=== PATIENT | female | born 1970 | race Caucasian/White ===

== ENCOUNTER → 2019-03-01 | Outpatient (CLI) | payer OTHER ==
[2014-05-05 10:47] VITALS: BP 105/70
[~2019-03-01] MED LIST: ALBU2.5V8 INH; ASPI-630 PO; ATOR10TA PO; CHOL500016 PO; FERR325T58 PO; FLUT12AE IH; GADOTERATE 7.5 MMOL/15ML VIAL. IVP ONE; LEVO150T PO; LISI10TA2 PO; OXYC1TAB15 PO; Oxycodone Hcl/Acetaminophen PO; TELM40TA PO
--- NOTE | 2019-03-01 15:01 | KCIC ---
BRAIN WO/W CONTRAST History: Dizziness. Vertigo. Pulsatile tinnitus. Technique: Multiplanar, multi sequential pre and postcontrast MR imaging was performed of the brain. Contrast: 24 mL Dotarem. Comparison: Head CT March 18, 2018. Findings: Partially evaluated T2 hyperintense enhancing lesion within the right parapharyngeal space measures 1.2 x 0.9 cm (series 6 image #3 and series 13 image #3). The lesion demonstrates increased diffusion weighted signal. No acute infarct. No intracranial hemorrhage. No mass effect. No hydrocephalus. Extra-axial spaces are unremarkable. No pathologic enhancement. No pathologic signal abnormality or enhancement within the bilateral cerebellopontine angles or internal auditory canals. Bilateral cochlea and semicircular canals appear symmetric. Imaged orbits are unremarkable. Right inferior maxillary and sphenoid sinus mucosal thickening. Partial right anterior ethmoid sinus opacification. Mastoid air cells are clear. Impression: 1. No acute intracranial abnormality. 2. Right parapharyngeal space enhancing T2 hyperintense mass, may represent deep parotid salivary tumor such as pleomorphic adenoma or a neurogenic tumor such as schwannoma. Recommend CT with contrast to further assess. Electronically signed by: Stephen Matthews DO (03/01/2019 2:58 PM) [facility]-[email or web address]
== END | disposition home or self-care (01) ==
LOC: KCIC MRI 12:42
PROVIDERS: ATTEND Family Medicine
DX: R42 Dizziness and giddiness (principal); J34.89 Other specified disorders of nose and nasal sinuses; J39.2 Other diseases of pharynx; I10 Essential (primary) hypertension; Z90.49 Acquired absence of other specified parts of digestive tract; Z85.850 Personal history of malignant neoplasm of thyroid; J45.909 Unspecified asthma, uncomplicated
CPT/HCPCS: 70553; A9575

== ENCOUNTER → 2019-03-04 | Outpatient (CLI) | payer OTHER ==
[2014-05-05 10:47] VITALS: BP 105/70
[~2019-03-04] MED LIST changes: +CONTRAST GIVEN. MC PRN; -GADOTERATE 7.5 MMOL/15ML VIAL. IVP ONE; +IOHEXOL 300 MG/ML 100ML VIAL. IV ONE
--- NOTE | 2019-03-04 16:19 | KCIC ---
CT SOFT TISSUE NECK W/CONTRAST History: Right paratracheal space mass seen on recent MRI. Technique: CT imaging was performed of the neck soft tissues with contrast. Coronal and sagittal reconstructions were performed. Contrast: 10 mL Omnipaque 300 IV contrast. Exposure: One or more of the following individualized dose reduction techniques were utilized for this examination: 1. Automated exposure control 2. Adjustment of the mA and/or kV according to patient size 3. Use of iterative reconstruction technique. Comparison: Brain MRI March 11, 2019. Findings: 1.1 x 0.8 cm right retropharyngeal lymph node with central hypoattenuation, concerning for necrosis. Additional enlarged right level 2A lymph node measures 1.4 x 1.2 cm. Borderline enlarged rounded left submandibular lymph node. Enlarged left level 3 lymph node measures 1.0 x 1.0 cm with rounded appearance. Numerous additional smaller bilateral deep cervical chain and right intraparotid lymph nodes. Postoperative changes within the modified radical right neck dissection. Right submandibular gland absence of severe atrophy. Additional postoperative changes within the region of the thyroid gland. Evaluation of the oropharynx is degraded by patient motion. Asymmetry of the piriform recesses with soft tissue prominence in the region of the right piriform recess. Unremarkable bilateral parotid glands. Unremarkable left submandibular gland. Calcified right upper lobe pulmonary nodule. Right inferior maxillary sinus mucosal thickening. Right sphenoid sinus mild mucosal thickening. Mastoid air cells are clear. Imaged orbits and intracranial contents are unremarkable. Impression: 1. Pathologically enlarged right retropharyngeal lymph node with possible central necrosis corresponds with MRI finding. Additional bilateral deep cervical chain lymphadenopathy. Recommend correlation for history of malignancy and biopsy if indicated. 2. Asymmetric thickening of the right piriform recess. Recommend comparison with prior imaging studies and further clinical evaluation including direct visualization if indicated. 3. Postoperative changes right neck and in the region of the thyroid gland. Electronically signed by: Stephen Matthews DO (03/04/2019 4:16 PM) [facility]-KCIC[facility]
== END | disposition home or self-care (01) ==
LOC: KCIC CT 12:32
PROVIDERS: ATTEND Family Medicine
DX: R59.0 Localized enlarged lymph nodes (principal); J45.909 Unspecified asthma, uncomplicated; I10 Essential (primary) hypertension; J32.9 Chronic sinusitis, unspecified
CPT/HCPCS: 70491; Q9967

== ENCOUNTER → 2021-05-08 | Outpatient (CLI) | payer OTHER ==
[2014-05-05 10:47] VITALS: BP 105/70
[~2021-05-08] MED LIST changes: +CETI10TA74 PO; -CONTRAST GIVEN. MC PRN; +FLUT1DIS IH; +FLUT9.9S NS; +GADOTERATE 7.5 MMOL/15ML VIAL. IVP ONE; -IOHEXOL 300 MG/ML 100ML VIAL. IV ONE; +LISI10TA16 PO; -LISI10TA2 PO; +METO-239 PO
--- NOTE | 2021-05-08 12:48 | KCIC ---
EXAM: Brain and orbital MRI with and without contrast. HISTORY: Vision disturbances. Left eye flashes. TECHNIQUE: Multiplanar, multisequence magnetic resonance imaging of the brain and orbits was performe d prior to and following the administration of intravenous contrast. COMPARISON: MRI dated 03/01/2019. FINDINGS: There is no restricted diffusion to suggest acute or subacute infarction. There is no susce ptibility effect to suggest hemorrhage. There is no mass effect or midline shift. There is no hydroce phalus. No suspicious white matter lesion is seen. The globes, lenses, extraocular muscles and optic nerves are unremarkable. There is no infiltration o f the retrobulbar fat or orbital mass. There is a tiny right maxillary sinus mucous retention cyst. The mastoid air cells are clear. There a re normal flow voids within the cerebral vessels. There has been slight interval decrease in a T2 hyp erintense lesion within the right parapharyngeal space measuring 11 x 7 mm, compared to prior measure ments of 12 x 8 mm. There are low-lying cerebellar tonsils. This is not within limits for a Chiari malformation. There is no suspicious enhancing lesion. There are enlarged cervical chain lymph nodes, not formally assessed on this exam. The right submandibular gland is absent. IMPRESSION: 1. No acute intracranial finding. 2. No acute orbital finding. 3. Cervical chain lymphadenopathy, not formally assessed on this exam. This was present on a CT perfo rmed 03/04/2019. Given evidence of prior right neck dissection and suspected surgical absence of the ri ght submandibular gland, the possibility of an underlying neoplastic etiology is not excluded. There has been slight interval decrease in a T2 hyperintense lesion within the right parapharyngeal space, also likely an enlarged lymph node. Electronically signed by: Miryam Rothman MD (05/08/2021 12:46 PM) [facility]
== END ==
LOC: KCIC MRI 08:26
PROVIDERS: ATTEND Optometrist
DX: R59.1 Generalized enlarged lymph nodes (principal); H53.19 Other subjective visual disturbances
CPT/HCPCS: 70543; 70553; A9575

== ENCOUNTER 2021-05-26 10:21 | Inpatient (IN) | payer OTHER ==
[2021-05-26] VITALS (9 sets, daily range): BP systolic 107–137; BP diastolic 44–73
[~2021-05-26] VITALS: Ht 165.1 cm; Wt 142.8 kg
[~2021-05-26 10:21] MED LIST changes: -GADOTERATE 7.5 MMOL/15ML VIAL. IVP ONE
[2021-05-26] MEDS ORDERED: BUPIVACAINE-EPI 0.5% 30 ML VIAL KIT. ONE ×2 (11:13→11:14)
[2021-05-26] MEDS ORDERED: SUCCINYLCHOLINE 200 MG/10 ML VIAL. ONE (11:23)
[2021-05-26] MEDS ORDERED: PROPOFOL 10 MG/ML (20ML) VIAL. IV ONE (11:23)
[2021-05-26] MEDS ORDERED: ROCURONIUM 50 MG/5 ML VIAL. ONE (11:23)
[2021-05-26] MEDS ORDERED: LIDOCAINE 2% PF 5 ML VIAL. ONE (11:23)
[2021-05-26] MEDS ORDERED: fentaNYL PF VIAL 100 MCG/2 ML VIAL IVP PRN ×2 (11:30)
[2021-05-26] MEDS ORDERED: HYDROmorphone 2 MG/ML VIAL IVP PRN (11:30)
[2021-05-26] MEDS: IV RINGERS,LACTATED 1000ML 1,000 ML IV SCH ×2 (11:50→13:13)
[2021-05-26] MEDS ORDERED: fentaNYL PF VIAL 250 MCG/5 ML VIAL ONE (12:06)
--- NOTE | 2021-05-26 12:07 | PDOC2 ---
CONSULT Date of Consult Date of Consult DATE: 05/26/21 TIME: 12:04 History of Present Illness Reason for Visit: 50 year old female reported to ER at [facility] with abdominal pain. The pain began last night and has been in the RLQ. The pain remained persistent with no nausea or vomiting. In the ER her evaluation was consistent with acute appendicitis. Past Medical History Cardiovascular: HTN Pulmonary: No pertinent hx GI: No pertinent hx Endocrine: Other Past Surgical History Past Surgical History: , Other Family History Family History: Diabetes, Heart Disease Social History No Current Medications Current Medications Current Medications Fentanyl Citrate (Fentanyl 2ml Vial) 25 mcg PRN Q5MIN PRN IVP MILD PAIN 1-3; Start 05/26/21 at 11:30; Stop 05/27/21 at 11:29 Fentanyl Citrate (Fentanyl 2ml Vial) 50 mcg PRN Q5MIN PRN IVP MODERATE PAIN 4- 6; Start 05/26/21 at 11:30; Stop 05/27/21 at 11:29 Morphine Sulfate (Morphine Sulfate) 1 mg PRN Q10MIN PRN IVP SEVERE PAIN 7-10; Start 05/26/21 at 11:30; Stop 05/27/21 at 11:29 Ringer's Solution 1,000 ml @ 30 mls/hr Q24H IV ; Start 05/26/21 at 11:30; Stop 05/26/21 at 23:29 Hydromorphone HCl (Dilaudid) 0.5 mg PRN Q10MIN PRN IVP SEVERE PAIN 7-10, 2nd CHOICE; Start 05/26/21 at 11:30; Stop 05/27/21 at 11:29 Prochlorperazine Edisylate (Compazine) 5 mg PACU PRN PRN IVP NAUSEA, MRX1; Start 05/26/21 at 11:30; Stop 05/27/21 at 11:29 Active Scripts Active Reported Zyrtec (Cetirizine Hcl) 10 Mg Tablet 10 Mg PO Flonase Allergy Relief (Fluticasone Propionate) 9.9 Ml [place].susp 2 Sprays NS DAILY Advair 100-50 Diskus (Fluticasone/Salmeterol) 1 Each Disk.w.dev 1 Inh IH BID Metoprolol Succinate ( Xl ) (Metoprolol Succinate) 25 Mg Tab.er.24h 25 Mg PO DAILY Micardis (Telmisartan) 40 Mg Tablet 1 Tab PO DAILY Proair Hfa Inhaler (Albuterol Sulfate) 8.5 Gm Hfa.aer.ad 1 Puff INH PRN Q6HRS PRN Flovent 110MCG Hfa (Fluticasone Propionate) 12 Gm Aer.w.adap 2 Puff IH BID Percocet 5-325 Mg Tablet (Oxycodone/Acetaminophen) 1 Each Tablet 1-2 Tab PO Q4-6HRS last dose at 1100 may take the next pill at 3 pm Iron Supplement (Ferrous Sulfate) 325 Mg Tablet 65 Mg PO DAILY last dose this am Vitamin D3 (Cholecalciferol (Vitamin D3)) 5,000 Unit Tablet 3,000 Unit PO DAILY last dose this am next dose tomorrow Aspirin 81 Mg Tab.chew 81 Mg PO DAILY last dose this am net dose tomorrow Lipitor (Atorvastatin Calcium) 10 Mg Tablet 10 Mg PO DAILY last dose last night next dose tonight Synthroid (Levothyroxine Sodium) 150 Mcg Tablet 150 Mcg PO DAILYAC last dose this am next dose tomorrow Lisinopril 10 Mg Tablet 10 Mg PO DAILY next dose tomorrow take blood pressure if geater than 120/ 60 resume Allergies Allergies: Coded Allergies: lisinopril (Verified Allergy, Unknown, 05/08/21) ROS General: No: Chills, Night Sweats, Fatigue, Malaise, Appetite, Other PSYCHOLOGICAL ROS: No: Anxiety, Behavioral Disorder, Concentration difficultie, Decreased libido, Depression, Disorientation, Hallucinations, Hostility, Irritablity, Memory difficulties, Mood Swings, Obsessive thoughts, Physical abuse, Sexual abuse, Sleep disturbances, Suicidal ideation, Other HEENT: No: Heacaches, Visual Changes, Hearing change, Nasal congestion, Nasal discharge, Oral lesions, Sinus pain, Sore Throat, Epistaxis, Sneezing, Snoring, Tinnitus, Vertigo, Vocal changes, Other ALLERGY AND IMMUNOLOGY: No: Hives, Insect Bite Sensitivity, Itchy/Watery Eyes, Nasal Congestion, Post Nasal Drip, Seasonal Allergies, Other ENDOCRINE: No: Breast Changes, Galactorrhea, Hair Pattern Changes, Hot Flashes, Malaise/lethargy, Mood Swings, Palpitations, Polydipsia/polyuria, Skin Changes, Temperature Intolerance, Unexpected Weight Changes, Other Respiratory: No: Cough, Hemoptysis, Orthopnea, Pleuritic Pain, Shortness of breath, SOB with excertion, Sputum Changes, Stridor, Tachypnea, Wheezing, Other Gastrointestinal: Yes Abdominal Pain Genitourinary: No Dysuria, No Frequency, No Incontinence, No Hematuria, No Retention, No Discharge, No Urgency, No Pain, No Flank Pain, No Other, No , No , No , No , No , No , No Musculoskeletal: No Gait Disturbance, No Joint Pain, No Joint Stiffness, No Joint Swelling, No Muscle Pain, No Muscular Weakness, No Pain In:, No Swelling In:, No Other Neurological: No Behavorial Changes, No Bowel/Bladder ControlChng, No Confusion, No Dizziness, No Gait Disturbance, No Headaches, No Impaired Coord/balance, No Memory Loss, No Numbness/Tingling, No Seizures, No Speech Problems, No Tremors, No Visual Changes, No Weakness, No Other Skin: No Dry Skin, No Eczema, No Hair Changes, No Lumps, No Mole Changes, No Mottling, No Nail Changes, No Pruritus, No Rash, No Skin Lesion Changes, No Other, No Acne Physical Exam General: Alert, Oriented X3, Cooperative HEENT: Atraumatic Lungs: Clear to auscultation Heart: Regular rate Abdomen: Soft (morbidly obese, tender in RLQ) Extremities: No clubbing, No cyanosis Skin: No rashes, No breakdown Neuro: Normal speech Assessment/Plan Assessment/Plan 50 year old female with R abdominal pain, CT suggestive of appendicitis. Plan to OR for laparoscopy WISAM PEÑALOZA MD May 26, 2021 12:07
[2021-05-26] MEDS ORDERED: DEXAMETHASONE SOD PHOS 4 MG/ML VIAL ONE (12:11)
[2021-05-26] MEDS ORDERED: ONDANSETRON PF 4 MG/2 ML VIAL. ONE (12:11)
[2021-05-26] MEDS ORDERED: FAMOTIDINE 20 MG/2 ML VIAL ONE (12:11)
--- NOTE | 2021-05-26 12:12 | PDOC1 ---
History and Physical Date of Admission Date of Admission DATE: 05/26/21 TIME: 12:11 Identification/Chief Complaint Chief Complaint Abdominal pain Source Source: Chart review, Patient History of Present Illness History of Present Illness Patient is a 50-year-old female who presents as a transfer from [facility] ER due to acute appendicitis. She reports right lower quadrant abdominal pain that began last night around 6 PM. She describes pain as sharp, constant, without radiation. Pain is worsened this morning, which caused her to come to the ED for further evaluation. Labs at [facility] ER showed WBC 12.6, hemoglobin 11.4, hematocrit 36.4. CT abdomen/pelvis showed acute appendicitis. General surgery was contacted and made aware of patient. She was transferred to [facility] for urgent surgical intervention. I have accepted patient for further medical management. Past Medical History Past Medical History Asthma, GERD, HTN, thyroid cancer, hypothyroidism Cardiovascular: HTN Pulmonary: No pertinent hx GI: No pertinent hx Endocrine: Other Past Surgical History Past Surgical History Thyroid surgery, cholecystectomy, Past Surgical History: , Other Family History Family History: Diabetes, Heart Disease Social History Smoke: No ALCOHOL: none Drugs: None Current Medications Current Medications Current Medications Fentanyl Citrate (Fentanyl 2ml Vial) 25 mcg PRN Q5MIN PRN IVP MILD PAIN 1-3; Start 05/26/21 at 11:30; Stop 05/27/21 at 11:29 Fentanyl Citrate (Fentanyl 2ml Vial) 50 mcg PRN Q5MIN PRN IVP MODERATE PAIN 4- 6; Start 05/26/21 at 11:30; Stop 05/27/21 at 11:29 Morphine Sulfate (Morphine Sulfate) 1 mg PRN Q10MIN PRN IVP SEVERE PAIN 7-10; Start 05/26/21 at 11:30; Stop 05/27/21 at 11:29 Ringer's Solution 1,000 ml @ 30 mls/hr Q24H IV ; Start 05/26/21 at 11:30; Stop 05/26/21 at 23:29 Hydromorphone HCl (Dilaudid) 0.5 mg PRN Q10MIN PRN IVP SEVERE PAIN 7-10, 2nd CHOICE; Start 05/26/21 at 11:30; Stop 05/27/21 at 11:29 Prochlorperazine Edisylate (Compazine) 5 mg PACU PRN PRN IVP NAUSEA, MRX1; Sta rt 05/26/21 at 11:30; Stop 05/27/21 at 11:29 Active Scripts Active Reported Zyrtec (Cetirizine Hcl) 10 Mg Tablet 10 Mg PO Flonase Allergy Relief (Fluticasone Propionate) 9.9 Ml [place].susp 2 Sprays NS DAILY Advair 100-50 Diskus (Fluticasone/Salmeterol) 1 Each Disk.w.dev 1 Inh IH BID Metoprolol Succinate ( Xl ) (Metoprolol Succinate) 25 Mg Tab.er.24h 25 Mg PO DAILY Micardis (Telmisartan) 40 Mg Tablet 1 Tab PO DAILY Proair Hfa Inhaler (Albuterol Sulfate) 8.5 Gm Hfa.aer.ad 1 Puff INH PRN Q6HRS PRN Flovent 110MCG Hfa (Fluticasone Propionate) 12 Gm Aer.w.adap 2 Puff IH BID Percocet 5-325 Mg Tablet (Oxycodone/Acetaminophen) 1 Each Tablet 1-2 Tab PO Q4-6HRS last dose at 1100 may take the next pill at 3 pm Iron Supplement (Ferrous Sulfate) 325 Mg Tablet 65 Mg PO DAILY last dose this am Vitamin D3 (Cholecalciferol (Vitamin D3)) 5,000 Unit Tablet 3,000 Unit PO DAILY last dose this am next dose tomorrow Aspirin 81 Mg Tab.chew 81 Mg PO DAILY last dose this am net dose tomorrow Lipitor (Atorvastatin Calcium) 10 Mg Tablet 10 Mg PO DAILY last dose last night next dose tonight Synthroid (Levothyroxine Sodium) 150 Mcg Tablet 150 Mcg PO DAILYAC last dose this am next dose tomorrow Lisinopril 10 Mg Tablet 10 Mg PO DAILY next dose tomorrow take blood pressure if geater than 120/ 60 resume Allergies Allergies: Coded Allergies: lisinopril (Verified Allergy, Unknown, 05/08/21) ROS Review of System GENERAL: No history of weight change, weakness or fevers. SKIN: No bruising, hair changes or rashes. EYES: No blurred, double or loss of vision. NOSE AND THROAT: No history of nosebleeds, hoarseness or sore throat. HEART: Denies chest pain, denies palpitations. LUNGS: Denies cough, hemoptysis, wheezing or shortness of breath. GASTROINTESTINAL: Abdominal pain. Denies nausea, vomiting. GENITOURINARY: Denies dysuria, frequency, urgency, hematuria. NEUROLOGIC: Denies history of numbness, tingling, tremor or weakness. PSYCHIATRIC: Denies anxiety, denies depression. ENDOCRINE: No history of heat or cold intolerance, polyuria or polydipsia. EXTREMITIES: Denies muscle weakness, joint pain, pain on walking or stiffness. Physical Exam Physical Exam General: Alert, Oriented X3, Cooperative. Moderate distress. HEENT: PERRLA, EOMI Lungs: Clear to auscultation, Normal air movement Heart: RRR, no murmurs Cardiovascular: S1, S2 Abdomen: Right lower quadrant, tenderness. Normal bowel sounds, Soft, Extremities: No clubbing, No cyanosis Skin: No rashes, No significant lesion Neuro: Normal speech, Normal tone, Sensation intact Psych/Mental Status: Mental status NL, [place] [address] IMAGING REPORT Signed PATIENT: BABITA GAMBOA ACCOUNT: [id number] : 1970 LOCATION: ER AGE: 50 SEX: F EXAM STATUS: REG ER ORD. PHYSICIAN: KULDEEP CHEEK DO REASON: RLQ pain PROCEDURE: CT ABD PELV W/ IV CONTRST ONLY EXAM: CT ABDOMEN/PELVIS WITH CONTRAST. HISTORY: Right lower quadrant pain. TECHNIQUE: Computed tomography of the abdomen and pelvis was performed after the intravenous administration of iodinated contrast. One or more of the following individualized dose reduction techniques were utilized for this examination: 1. Automated exposure control. 2. Adjustment of the mA and/or kV according to patient size. 3. Use of iterative reconstruction technique. COMPARISON: 04/27/2020. FINDINGS: There are limitations from [id number] ratio given technical factors. The most superior aspect of the hemidiaphragms are not included in this [id number]. Lung windows through the visualized portions of the bases reveal a calcified granuloma in the left lower lobe. Bone windows reveal no suspicious lesions. The appendix is thickened with surrounding inflammatory change, consistent with acute appendicitis. There is no drainable collection. There is no small bowel obstruction. The uterus and ovaries are unremarkable by CT. The gallbladder is surgically absent. The superior aspect of the hepatic dome was excluded, but no abnormalities appreciated. The spleen is mildly enlarged at 15.1 cm. The pancreas, adrenal glands and kidneys are unremarkable. There are no pathologically enlarged lymph nodes. IMPRESSION: 1. Acute appendicitis. 2. Mild splenomegaly. VTE Prophylaxis Ordered VTE Prophylaxis Devices: No VTE Pharmacological Prophylaxi: Yes Assessment/Plan Assessment/Plan Acute appendicitis HTN Hypothyroidism GERD Plan: Patient was taken urgently to the OR Consulted general surgery I imagine she will be inpatient for the next day or so Resume home medications FEN - Cardiac diet PPX - Heparin FULL CODE Dispo - inpatient for above Justifications for Admission Other Justification JAGRUTI LAWSON MD May 26, 2021 12:12
[2021-05-26] MEDS ORDERED: PHENYLEPHRINE in 0.9% NACL PF 1 MG/10 ML SYRINGE. IV ONE (12:13)
[2021-05-26] MEDS ORDERED: BUPIVACAINE-EPI 0.5% 30 ML VIAL KIT. INJ ONE (12:26)
[2021-05-26] MEDS ORDERED: ACETAMINOPHEN 325 MG TABLET. PO PRN (12:30)
[2021-05-26] MEDS ORDERED: hydrALAZINE 20 MG/ML VIAL. IVP PRN (12:30)
[2021-05-26] MEDS ORDERED: MAGNESIUM HYDROXIDE 2,400 MG/30 ML ORAL.SUSP. PO PRN (12:30)
[2021-05-26] MEDS ORDERED: CALCIUM CARBONATE 500 MG TAB.CHEW PO PRN (12:30)
[2021-05-26] MEDS ORDERED: oxyCODONE/APAP 5/325 1 TAB TABLET PO PRN ×3 (12:30→13:30)
[2021-05-26] MEDS ORDERED: HYDROcodone/APAP 5/325MG 1 TAB TABLET PO PRN (12:30)
[2021-05-26] MEDS ORDERED: ZOLPIDEM 5 MG TABLET. PO PRN (12:30)
[2021-05-26] MEDS ORDERED: MAG HYDROX/ALUMINUM HYD/SIMETH 30 ML ORAL.SUSP PO PRN (12:30)
[2021-05-26] MEDS ORDERED: ONDANSETRON PF 4 MG/2 ML VIAL. IVP PRN (12:30)
[2021-05-26] MEDS ORDERED: MORPHINE SULFATE 2 MG/ML INJ. IV PRN (12:30)
[2021-05-26] MEDS ORDERED: NEOSTIGMINE METHYLSULFATE 5 MG/5 ML SYRINGE. ONE (12:32)
[2021-05-26] MEDS ORDERED: MORPHINE SULFATE 2 MG/ML INJ. ONE (13:12)
[2021-05-26] MEDS ORDERED: PROCHLORPERAZINE 10 MG/2 ML VIAL. ONE (13:12)
[2021-05-26] MEDS: PROCHLORPERAZINE 10 MG/2 ML VIAL. IVP PRN ×2 (13:15→13:38)
[2021-05-26] MEDS: MORPHINE SULFATE 2 MG/ML INJ. IVP PRN ×2 (13:16→13:26)
--- NOTE | 2021-05-26 13:18 | PDOC4 ---
Operative Note Operative Note Preoperative Diagnosis: Acute Appendicitis Postoperative Diagnosis: Same Procedure: Laparoscopic appendectomy Surgeon: Luigi Anesthesia: Gen. EBL: 10 mL Specimen: Appendix to pathology Drains: None Complications: None Indication: The patient is a 50-year-old female who reported to the emergency department with abdominal pain. The evaluation is consistent with acute appendicitis. The patient was offered surgical treatment with a laparoscopic appendectomy. The risks of surgery were discussed which include bleeding, infection, visceral injury, pain, anesthetic risk, potential need for additional surgery or procedure. The patient understands and would like to proceed. Description: The patient was taken to the operating room and placed supine on the operating table. Gen. anesthesia was performed. The abdomen was prepped with ChloraPrep and draped in a standard surgical manner. A left abdominal incision was made through which a visualized 5 mm trocar was inserted. A pneumoperitoneum was created and the laparoscope was introduced. In the left lower quadrant a 5 mm trocar was inserted. In the suprapubic region a 12 mm trocar was inserted. The appendix was identified and appeared inflamed consistent with acute appendicitis. There was no clear evidence of perforation or periappendiceal abscess. The mesoappendix was bluntly from the appendix. The mesoappendix was controlled using several clips and it was divided. The appendix was then amputated off the cecum using an Endo FRANCISCO 45 stapling device. The appendix was then placed in an endoscopic bag and extracted at the suprapubic incision site. The fascia there was closed with 0 Vicryl and infiltrated with half percent Marcaine with epinephrine. The RLQ was visualized and the staple line appeared well intact and hemostasis was good. No other abnormalities were identified grossly. The remaining ports were removed and the pneumoperitoneum was relieved. The skin at all incision sites was closed with 4- 0 Monocryl. Steri-Strips and dressings were applied. The patient tolerated the procedure well and was sent to the recovery room in stable condition. At the end of the case all counts were correct. WISAM PEÑALOZA MD May 26, 2021 13:18
[2021-05-26] MEDS ORDERED: KETOROLAC 30 MG/ML VIAL. ONE (13:48)
--- NOTE | 2021-05-26 13:50 | NUR ---
Received report from Abbey Osman in PACU, patient received 50 mcg of fentanyl, 2mg of morphine, 4 decadron, 4 zofran, 20 pepcid, compazine twice. Patient denies pain in shoulder, complained of not able to take a deep breathe. 3 islets, 3 incisions with steri strips and glue. 1300input, 25ml in galeano, EBL 10. BP 156/74 oxygen sats 92-96 RA.
[2021-05-26] MEDS ORDERED: KETOROLAC 30 MG/ML VIAL. IVP ONE (14:00)
[2021-05-26] MEDS: BUDESONIDE 0.5 MG/2 ML NEBU. NEB SCH (20:00)
[2021-05-26] MEDS ORDERED: NON FORMULARY ITEM (Fluticasone Propionate (Flovent 110MCG Hfa) 2 PUFF) IH SCH (21:00)
[2021-05-26] MEDS: HEPARIN for SUB-Q USE 5,000 UNIT/ML VIAL. SQ SCH (22:16)
[2021-05-27 03:00] VITALS: BP 105/52
[2021-05-27] MEDS: HEPARIN for SUB-Q USE 5,000 UNIT/ML VIAL. SQ SCH ×2 (06:36→14:00)
[2021-05-27 07:00] VITALS: BP 102/47
[2021-05-27] MEDS ORDERED: LEVOTHYROXINE 150 MCG TABLET PO SCH (07:30)
[2021-05-27 07:57] LABS: BASO % 0 % (0-3); EOS % 0 % (0-3); HEMATOCRIT 32.3 % (36.0-47.0); HEMOGLOBIN 10.2 g/dL (12.0-15.5); LYMPH # 0.7 x10^3/uL (1.0-4.8); LYMPH % 8 % (24-48); MEAN CORPUSCULAR HEMOGLOBIN 25 pg (25-35); MEAN CORPUSCULAR HGB CONC 32 g/dL (31-37); MEAN CORPUSCULAR VOLUME 80 fL (79-100); MONO # 0.6 x10^3/uL (0.0-1.1); MONO % 6 % (0-9); NEUT # 7.7 x10^3/uL (1.8-7.7); NEUT % 86 % (31-73); PLATELET COUNT 162 x10^3/uL (140-400); RED BLOOD COUNT 4.07 x10^6/uL (3.50-5.40); RED CELL DISTRIBUTION WIDTH 15.7 % (11.5-14.5)
[2021-05-27] MEDS ORDERED: FERROUS SULFATE 325 MG TABLET. PO SCH (08:00)
[2021-05-27] MEDS: BUDESONIDE 0.5 MG/2 ML NEBU. NEB SCH (08:00)
[2021-05-27 08:28] LABS: CALCIUM 8.1 mg/dL (8.5-10.1); CREATININE 0.5 mg/dL (0.6-1.0); GFR 131.1; POTASSIUM 3.8 mmol/L (3.5-5.1)
[2021-05-27] MEDS ORDERED: CETIRIZINE HCL 10 MG TABLET. PO SCH (09:00)
[2021-05-27] MEDS ORDERED: METOPROLOL SUCC 24HR ER 25 MG TAB.ER.24H. PO SCH (09:00)
[2021-05-27] MEDS ORDERED: LOSARTAN POTASSIUM 50 MG TABLET. PO SCH (09:00)
[2021-05-27] MEDS ORDERED: FLUTICASONE 50MCG/NASAL SPRAY 16GM BOTTLE. NS SCH (09:00)
[2021-05-27] MEDS ORDERED: ATORVASTATIN CALCIUM 10 MG TABLET. PO SCH (09:00)
[2021-05-27] MEDS ORDERED: ASPIRIN CHEWABLE 81 MG TABLET. PO SCH (09:00)
--- NOTE | 2021-05-27 09:01 | PDOC ---
[employer] PROGRESS NOTE Date of Service DOS: DATE: 05/27/21 TIME: 08:54 Chief Complaint Chief Complaint Acute appendicitis - s/p lap appy 05/26/2021 HTN - metoprolol and telmisartan outpatient, sees Dr. Castro Hypothyroidism GERD Plan: Consulted general surgery Resume home medications FEN - Cardiac diet PPX - Heparin FULL CODE Dispo - Home today if ok with Dr. Meyers. Patient prefers tramadol for pain History of Present Illness History of Present Illness Ms Aguillon is a 50-year-old female who presents as a transfer from [facility] ER due to acute appendicitis. She reports right lower quadrant abdominal pain that began last night around 6 PM. She describes pain as sharp, constant, without radiation. Pain is worsened this morning, which caused her to come to the ED for further evaluation. Labs at [facility] ER showed WBC 12.6, hemoglobin 11.4, hematocrit 36.4. CT abdomen/pelvis showed acute appendicitis. General surgery was contacted and made aware of patient. She was transferred to [facility] for urgent surgical intervention. I have accepted patient for further medical management. s/p uncomplicated lap appendectomy on 05/26 with general surgery. WBC 9, Hb 10.2, platelets 162, metabolic panel within normal limits. Afebrile, minimal abdominal pain. No shortness of breath or chest pain. Tolerating p.o. well passing flatus. Vitals/I&O Vitals/I&O: Vital Signs Date Time Temp Pulse Resp B/P (MAP) Pulse Ox O2 Delivery O2 Flow Rate FiO2 05/27/21 08:17 76 102/47 05/27/21 07:00 98.3 16 97 98.3 05/27/21 03:00 Room Air 05/26/21 13:26 10.0 I & O 05/26/21 05/26/21 05/27/21 15:00 23:00 07:00 Intake Total 1300 ml 1232 ml Output Total 185 ml 550 ml 700 ml Balance 1115 ml 682 ml -700 ml Physical Exam General: Alert, Oriented X3, Cooperative Heart: Regular rate Abdomen: Soft (morbidly obese, tender in RLQ) Extremities: No clubbing, No cyanosis Skin: No rashes, No breakdown Labs Labs: Laboratory Tests Test 05/27/21 07:25 White Blood Count 9.0 x10^3/uL (4.0-11.0) Red Blood Count 4.07 x10^6/uL (3.50-5.40) Hemoglobin 10.2 g/dL (12.0-15.5) Hematocrit 32.3 % (36.0-47.0) Mean Corpuscular Volume 80 fL (79-100) Mean Corpuscular Hemoglobin 25 pg (25-35) Mean Corpuscular Hemoglobin Concent 32 g/dL (31-37) Red Cell Distribution Width 15.7 % (11.5-14.5) Platelet Count 162 x10^3/uL (140-400) Neutrophils (%) (Auto) 86 % (31-73) Lymphocytes (%) (Auto) 8 % (24-48) Monocytes (%) (Auto) 6 % (0-9) Eosinophils (%) (Auto) 0 % (0-3) Basophils (%) (Auto) 0 % (0-3) Neutrophils # (Auto) 7.7 x10^3/uL (1.8-7.7) Lymphocytes # (Auto) 0.7 x10^3/uL (1.0-4.8) Monocytes # (Auto) 0.6 x10^3/uL (0.0-1.1) Eosinophils # (Auto) 0.0 x10^3/uL (0.0-0.7) Basophils # (Auto) 0.0 x10^3/uL (0.0-0.2) Sodium Level 139 mmol/L (136-145) Potassium Level 3.8 mmol/L (3.5-5.1) Chloride Level 105 mmol/L (98-107) Carbon Dioxide Level 26 mmol/L (21-32) Anion Gap 8 (6-14) Blood Urea Nitrogen 8 mg/dL (7-20) Creatinine 0.5 mg/dL (0.6-1.0) Estimated GFR (Cockcroft-Gault) 131.1 Glucose Level 88 mg/dL (70-99) Calcium Level 8.1 mg/dL (8.5-10.1) Comment Review of Relevant I have reviewed the following items lucy (where applicable) has been applied. Medications: Current Medications Medications (Trade) Dose Ordered Sig/Bryce Route PRN Reason Start Time Stop Time Status Last Admin Dose Admin Morphine Sulfate (Morphine Sulfate) 1 mg PRN Q10MIN PRN IVP SEVERE PAIN 7-10 05/26/21 11:30 05/26/21 15:14 DC 05/26/21 13:26 Ringer's Solution 1,000 ml @ 30 mls/hr Q24H IV 05/26/21 11:30 05/26/21 23:29 DC 05/26/21 13:13 Prochlorperazine Edisylate (Compazine) 5 mg PACU PRN PRN IVP NAUSEA, MRX1 05/26/21 11:30 05/26/21 15:14 DC 05/26/21 13:38 Heparin Sodium (Porcine) (Heparin Sodium) 5,000 unit Q8HRS SQ 05/26/21 22:00 05/27/21 06:36 Bupivacaine HCl/ Epinephrine Bitart (Sensorcain-Epi 0.5% Kit) 30 ml STK-MED ONCE INJ 05/26/21 12:26 05/26/21 12:44 DC 05/26/21 12:26 Oxycodone/ Acetaminophen (Percocet 5/325) 2 tab PRN Q4HRS PRN PO SEVERE PAIN 05/26/21 13:30 05/26/21 16:19 Ketorolac Tromethamine (Toradol 30mg Vial) 30 mg 1X ONCE IVP 05/26/21 14:00 05/26/21 14:01 DC 05/26/21 13:50 Cetirizine HCl (ZyrTEC) 10 mg DAILY PO 05/27/21 09:00 05/27/21 08:16 Levothyroxine Sodium (Synthroid) 150 mcg DAILYAC PO 05/27/21 07:30 05/27/21 06:33 Metoprolol Succinate (Toprol Xl) 25 mg DAILY PO 05/27/21 09:00 05/27/21 08:17 Justifications for Admission General Conditions Other justification for admit: Acute appendicitis Other Justification KATHRYN OSMAN MD May 27, 2021 09:01
[2021-05-27] MEDS ORDERED: TRAM50TA PO (09:35)
--- NOTE | 2021-05-27 09:38 | PDOC3 ---
Discharge Summary Visit Information Date of Admission: May 26, 2021 Date of Discharge: May 27, 2021 Admitting Diagnosis: Acute appendicitis Final Diagnosis Acute appendicitis Brief Hospital Course Allergies Allergies Coded Allergies Type Severity Reaction Last Updated Verified lisinopril Allergy Intermediate 05/26/21 Yes Vital Signs Vital Signs Date Time Temp Pulse Resp B/P (MAP) Pulse Ox O2 Delivery O2 Flow Rate FiO2 05/27/21 08:17 76 102/47 05/27/21 07:00 98.3 16 97 98.3 05/27/21 03:00 Room Air 05/26/21 13:26 10.0 Lab Results Laboratory Tests Test 05/27/21 07:25 White Blood Count 9.0 x10^3/uL (4.0-11.0) Red Blood Count 4.07 x10^6/uL (3.50-5.40) Hemoglobin 10.2 g/dL (12.0-15.5) Hematocrit 32.3 % (36.0-47.0) Mean Corpuscular Volume 80 fL (79-100) Mean Corpuscular Hemoglobin 25 pg (25-35) Mean Corpuscular Hemoglobin Concent 32 g/dL (31-37) Red Cell Distribution Width 15.7 % (11.5-14.5) Platelet Count 162 x10^3/uL (140-400) Neutrophils (%) (Auto) 86 % (31-73) Lymphocytes (%) (Auto) 8 % (24-48) Monocytes (%) (Auto) 6 % (0-9) Eosinophils (%) (Auto) 0 % (0-3) Basophils (%) (Auto) 0 % (0-3) Neutrophils # (Auto) 7.7 x10^3/uL (1.8-7.7) Lymphocytes # (Auto) 0.7 x10^3/uL (1.0-4.8) Monocytes # (Auto) 0.6 x10^3/uL (0.0-1.1) Eosinophils # (Auto) 0.0 x10^3/uL (0.0-0.7) Basophils # (Auto) 0.0 x10^3/uL (0.0-0.2) Sodium Level 139 mmol/L (136-145) Potassium Level 3.8 mmol/L (3.5-5.1) Chloride Level 105 mmol/L (98-107) Carbon Dioxide Level 26 mmol/L (21-32) Anion Gap 8 (6-14) Blood Urea Nitrogen 8 mg/dL (7-20) Creatinine 0.5 mg/dL (0.6-1.0) Estimated GFR (Cockcroft-Gault) 131.1 Glucose Level 88 mg/dL (70-99) Calcium Level 8.1 mg/dL (8.5-10.1) Laboratory Tests Test 05/27/21 07:25 White Blood Count 9.0 x10^3/uL (4.0-11.0) Red Blood Count 4.07 x10^6/uL (3.50-5.40) Hemoglobin 10.2 g/dL (12.0-15.5) Hematocrit 32.3 % (36.0-47.0) Mean Corpuscular Volume 80 fL (79-100) Mean Corpuscular Hemoglobin 25 pg (25-35) Mean Corpuscular Hemoglobin Concent 32 g/dL (31-37) Red Cell Distribution Width 15.7 % (11.5-14.5) Platelet Count 162 x10^3/uL (140-400) Neutrophils (%) (Auto) 86 % (31-73) Lymphocytes (%) (Auto) 8 % (24-48) Monocytes (%) (Auto) 6 % (0-9) Eosinophils (%) (Auto) 0 % (0-3) Basophils (%) (Auto) 0 % (0-3) Neutrophils # (Auto) 7.7 x10^3/uL (1.8-7.7) Lymphocytes # (Auto) 0.7 x10^3/uL (1.0-4.8) Monocytes # (Auto) 0.6 x10^3/uL (0.0-1.1) Eosinophils # (Auto) 0.0 x10^3/uL (0.0-0.7) Basophils # (Auto) 0.0 x10^3/uL (0.0-0.2) Sodium Level 139 mmol/L (136-145) Potassium Level 3.8 mmol/L (3.5-5.1) Chloride Level 105 mmol/L (98-107) Carbon Dioxide Level 26 mmol/L (21-32) Anion Gap 8 (6-14) Blood Urea Nitrogen 8 mg/dL (7-20) Creatinine 0.5 mg/dL (0.6-1.0) Estimated GFR (Cockcroft-Gault) 131.1 Glucose Level 88 mg/dL (70-99) Calcium Level 8.1 mg/dL (8.5-10.1) Brief Hospital Course Ms Aguillon is a 50-year-old female who presents as a transfer from [facility] ER due to acute appendicitis. She reports right lower quadrant abdominal pain that began last night around 6 PM. She describes pain as sharp, constant, without radiation. Pain is worsened this morning, which caused her to come to the ED for further evaluation. Labs at [facility] ER showed WBC 12.6, hemoglobin 11.4, hematocrit 36.4. CT abdomen/pelvis showed acute appendicitis. General surgery was contacted and made aware of patient. She was transferred to [facility] for urgent surgical intervention. I have accepted patient for further medical management. s/p uncomplicated lap appendectomy on 05/26 with general surgery. WBC 9, Hb 10.2, platelets 162, metabolic panel within normal limits. Afebrile, minimal abdominal pain. No shortness of breath or chest pain. Tolerating p.o. well passing flatus. Problem list: Acute appendicitis - s/p lap appy 05/26/2021 HTN - metoprolol and telmisartan outpatient, sees Dr. Castro Hypothyroidism GERD Allergic rhinitis - cont meds Asthma - moderate persistent, may need to consider singulair outpatient Greater than 30 minutes spent on d/c home with self care. F/u with surgery in 1- 2 weeks Discharge Information Condition at Discharge: Improved Follow Up: Weeks (1) Disposition/Orders: D/C to Home Scheduled Aspirin (Aspirin) 81 Mg Tab.chew, 81 MG PO DAILY for blood thinner, (Reported) last dose this am net dose tomorrow Entered as Reported by: CARLOZ PASTRANA on 05/03/141424 Last Action: Continued on 05/26/211437 by JAGRUTI LAWSON MD Atorvastatin Calcium (Lipitor) 10 Mg Tablet, 10 MG PO DAILY for FOR CHOLESTEROL, #30 Ref 0 (Reported) last dose last night next dose tonight Entered as Reported by: CARLOZ PASTRANA on 05/03/141424 Last Action: Continued on 05/26/211437 by JAGRUTI LAWSON MD Cholecalciferol (Vitamin D3) (Vitamin D3) 5,000 Unit Tablet, 3,000 UNIT PO DAILY, (Reported) last dose this am next dose tomorrow Entered as Reported by: CARLOZ PASTRANA on 05/03/141424 Last Action: Reviewed on 05/26/211427 by NIKOLAI NIX RN Ferrous Sulfate (Iron Supplement) 325 Mg Tablet, 65 MG PO DAILY for anemia, (Reported) last dose this am Entered as Reported by: CARLOZ PASTRANA on 05/03/141424 Last Action: Continued on 05/26/211437 by JAGRUTI LAWSON MD Fluticasone Propionate (Flovent 110MCG Hfa) 12 Gm Aer.w.adap, 2 PUFF IH BID, #1 Ref 2 (Reported) Entered as Reported by: GENESIS KU on 03/01/19 1318 Last Action: Converted on 05/26/211437 by JAGRUTI LAWSON MD Fluticasone Propionate (Flonase Allergy Relief) 9.9 Ml [place].susp, 2 SPRAYS NS DAILY, (Reported) Entered as Reported by: Mera Ayala on 04/24/21 0950 Last Action: Converted on 05/26/211437 by JAGRUTI LAWSON MD Fluticasone/Salmeterol (Advair 100-50 Diskus) 1 Each Disk.w.dev, 1 INH IH BID, (Reported) Entered as Reported by: Mera Ayala on 04/24/21 0950 Levothyroxine Sodium (Synthroid) 150 Mcg Tablet, 150 MCG PO DAILYAC for THYROID SUPPLEMENT, #30 Ref 0 (Reported) last dose this am next dose tomorrow Entered as Reported by: CARLOZ PASTRANA on 05/03/141424 Last Action: Continued on 05/26/211437 by JAGRUTI LAWSON MD Metoprolol Succinate (Metoprolol Succinate ( Xl )) 25 Mg Tab.er.24h, 25 MG PO DAILY for FOR HYPERTENSION, #30 Ref 0 (Reported) Entered as Reported by: Mera Ayala on 04/24/21 0950 Last Action: Continued on 05/26/211437 by JAGRUTI LAWSON MD Telmisartan (Micardis) 40 Mg Tablet, 1 TAB PO DAILY, #30 Ref 5 (Reported) Entered as Reported by: GENESIS KU on 03/01/191317 Last Action: Converted on 05/26/211437 by JAGRUTI LAWSON MD Scheduled PRN Albuterol Sulfate (Proair Hfa Inhaler) 8.5 Gm Hfa.aer.ad, 1 PUFF INH PRN Q6HRS PRN for SHORTNESS OF BREATH, Ref 0 (Reported) Entered as Reported by: GENESIS KU on 03/01/191317 Last Action: Reviewed on 05/26/211427 by NIKOLAI NIX RN Tramadol Hcl (Tramadol Hcl) 50 Mg Tablet, 50 MG PO PRN Q6HRS PRN for PAIN for 6 Days, #15 Prescribed by: KATHRYN OSMAN MD on 05/27/21 0935 Miscellaneous Medications Cetirizine Hcl (Zyrtec) 10 Mg Tablet, 10 MG PO, (Reported) Entered as Reported by: Mera Ayala on 04/24/21 0950 Last Action: Continued on 05/26/211437 by JAGRUTI LAWSON MD Discontinued Medications Lisinopril (Lisinopril) 10 Mg Tablet, 10 MG PO DAILY for FOR HYPERTENSION, #30 Ref 0 (Reported) next dose tomorrow take blood pressure if geater than 120/ 60 resume Entered as Reported by: CARLOZ PASTRANA on 05/03/14 1425 Last Action: Reviewed on 05/26/211427 by NIKOLAI NIX RN Oxycodone/Apap 5-325 (Percocet 5-325 Mg Tablet ) 1 Each Tablet, 1-2 TAB PO Q4- 6HRS for PAIN, #40 (Reported) last dose at 1100 may take the next pill at 3 pm Entered as Reported by: KEILA SALCIDO on 05/05/14 1120 Last Action: Reviewed on 05/26/211427 by NIKOLAI NIX RN Justicifation of Admission Dx: Justifications for Admission: Justification of Admission Dx: Yes KATHRYN OSMAN MD May 27, 2021 09:38
[2021-05-27 11:00] VITALS: BP 103/47
--- NOTE | 2021-05-27 12:09 | PDOC ---
PROGRESS NOTES Date of Service DATE: 05/27/21 TIME: 12:08 Subjective Subjective feeling better Objective Objective Vital Signs Date Time Temp Pulse Resp B/P (MAP) Pulse Ox O2 Delivery O2 Flow Rate FiO2 05/27/21 11:00 98.0 86 18 103/47 (65) 96 98.0 05/27/21 08:00 Room Air 05/26/21 13:26 10.0 Intake and Output 05/27/21 07:00 Intake Total 2532 ml Output Total 1435 ml Balance 1097 ml Intake Oral 350 ml IV Total 1300 ml Blood Product IV Normal Saline Flush 882 ml Output Urine Total 1425 ml Estimated Blood Loss 10 ml Physical Exam Abdomen: Soft Plan Plan of Care Ok to discharge, FU in 2 weeks in office Comment Review of Relevant I have reviewed the following items lucy (where applicable) has been applied. Labs Laboratory Tests Test 05/27/21 07:25 White Blood Count 9.0 x10^3/uL (4.0-11.0) Red Blood Count 4.07 x10^6/uL (3.50-5.40) Hemoglobin 10.2 g/dL (12.0-15.5) Hematocrit 32.3 % (36.0-47.0) Mean Corpuscular Volume 80 fL (79-100) Mean Corpuscular Hemoglobin 25 pg (25-35) Mean Corpuscular Hemoglobin Concent 32 g/dL (31-37) Red Cell Distribution Width 15.7 % (11.5-14.5) Platelet Count 162 x10^3/uL (140-400) Neutrophils (%) (Auto) 86 % (31-73) Lymphocytes (%) (Auto) 8 % (24-48) Monocytes (%) (Auto) 6 % (0-9) Eosinophils (%) (Auto) 0 % (0-3) Basophils (%) (Auto) 0 % (0-3) Neutrophils # (Auto) 7.7 x10^3/uL (1.8-7.7) Lymphocytes # (Auto) 0.7 x10^3/uL (1.0-4.8) Monocytes # (Auto) 0.6 x10^3/uL (0.0-1.1) Eosinophils # (Auto) 0.0 x10^3/uL (0.0-0.7) Basophils # (Auto) 0.0 x10^3/uL (0.0-0.2) Sodium Level 139 mmol/L (136-145) Potassium Level 3.8 mmol/L (3.5-5.1) Chloride Level 105 mmol/L (98-107) Carbon Dioxide Level 26 mmol/L (21-32) Anion Gap 8 (6-14) Blood Urea Nitrogen 8 mg/dL (7-20) Creatinine 0.5 mg/dL (0.6-1.0) Estimated GFR (Cockcroft-Gault) 131.1 Glucose Level 88 mg/dL (70-99) Calcium Level 8.1 mg/dL (8.5-10.1) Laboratory Tests Test 05/27/21 07:25 White Blood Count 9.0 x10^3/uL (4.0-11.0) Red Blood Count 4.07 x10^6/uL (3.50-5.40) Hemoglobin 10.2 g/dL (12.0-15.5) Hematocrit 32.3 % (36.0-47.0) Mean Corpuscular Volume 80 fL (79-100) Mean Corpuscular Hemoglobin 25 pg (25-35) Mean Corpuscular Hemoglobin Concent 32 g/dL (31-37) Red Cell Distribution Width 15.7 % (11.5-14.5) Platelet Count 162 x10^3/uL (140-400) Neutrophils (%) (Auto) 86 % (31-73) Lymphocytes (%) (Auto) 8 % (24-48) Monocytes (%) (Auto) 6 % (0-9) Eosinophils (%) (Auto) 0 % (0-3) Basophils (%) (Auto) 0 % (0-3) Neutrophils # (Auto) 7.7 x10^3/uL (1.8-7.7) Lymphocytes # (Auto) 0.7 x10^3/uL (1.0-4.8) Monocytes # (Auto) 0.6 x10^3/uL (0.0-1.1) Eosinophils # (Auto) 0.0 x10^3/uL (0.0-0.7) Basophils # (Auto) 0.0 x10^3/uL (0.0-0.2) Sodium Level 139 mmol/L (136-145) Potassium Level 3.8 mmol/L (3.5-5.1) Chloride Level 105 mmol/L (98-107) Carbon Dioxide Level 26 mmol/L (21-32) Anion Gap 8 (6-14) Blood Urea Nitrogen 8 mg/dL (7-20) Creatinine 0.5 mg/dL (0.6-1.0) Estimated GFR (Cockcroft-Gault) 131.1 Glucose Level 88 mg/dL (70-99) Calcium Level 8.1 mg/dL (8.5-10.1) Medications Current Medications Fentanyl Citrate (Fentanyl 2ml Vial) 25 mcg PRN Q5MIN PRN IVP MILD PAIN 1-3; Start 05/26/21 at 11:30; Stop 05/26/21 at 15:13; Status DC Fentanyl Citrate (Fentanyl 2ml Vial) 50 mcg PRN Q5MIN PRN IVP MODERATE PAIN 4- 6; Start 05/26/21 at 11:30; Stop 05/26/21 at 15:13; Status DC Morphine Sulfate (Morphine Sulfate) 1 mg PRN Q10MIN PRN IVP SEVERE PAIN 7-10 Last administered on 05/26/21at 13:26; Start 05/26/21 at 11:30; Stop 05/26/21 at 15:14; Status DC Ringer's Solution 1,000 ml @ 30 mls/hr Q24H IV Last administered on 05/26/21at 13:13; Start 05/26/21 at 11:30; Stop 05/26/21 at 23:29; Status DC Hydromorphone HCl (Dilaudid) 0.5 mg PRN Q10MIN PRN IVP SEVERE PAIN 7-10, 2nd CHOICE; Start 05/26/21 at 11:30; Stop 05/26/21 at 15:13; Status DC Prochlorperazine Edisylate (Compazine) 5 mg PACU PRN PRN IVP NAUSEA, MRX1 Last administered on 05/26/21at 13:38; Start 05/26/21 at 11:30; Stop 05/26/21 at 15:14; Status DC Hydralazine HCl (Apresoline Inj) 10 mg PRN Q4HRS PRN IVP ELEVATED BP, SEE COMMENTS; Start 05/26/21 at 12:30 Ondansetron HCl (Zofran) 4 mg PRN Q6HRS PRN IVP NAUSEA/VOMITING; Start 05/26/21 at 12:30 Al Hydroxide/Mg Hydroxide (Mylanta Plus Xs) 30 ml PRN Q3HRS PRN PO HEARTBURN / GAS; Start 05/26/21 at 12:30 Calcium Carbonate/ Glycine (Tums) 500 mg PRN Q3HRS PRN PO UPSET STOMACH; Start 05/26/21 at 12:30 Zolpidem Tartrate (Ambien) 5 mg PRN QHS PRN PO INSOMNIA, MAY REPEAT IN 1HR; Start 05/26/21 at 12:30 Morphine Sulfate (Morphine Sulfate) 2 mg PRN Q1HR PRN IV PAIN; Start 05/26/21 at 12:30 Acetaminophen/ Hydrocodone Bitart (Lortab 5/325) 1 tab PRN Q4HRS PRN PO MILD PAIN 1-3; Start 05/26/21 at 12:30 Oxycodone/ Acetaminophen (Percocet 5/325) 1 tab PRN Q4HRS PRN PO MILD PAIN, 2ND CHOICE; Start 05/26/21 at 12:30; Status Cancel Acetaminophen (Tylenol) 650 mg PRN Q6HRS PRN PO Headaches, Temp > 101.5F; Start 05/26/21 at 12:30 Magnesium Hydroxide (Milk Of Magnesia) 2,400 mg PRN Q12HR PRN PO CONSTIPATION; Start 05/26/21 at 12:30 Heparin Sodium (Porcine) (Heparin Sodium) 5,000 unit Q8HRS SQ Last administered on 05/27/21at 06:36; Start 05/26/21 at 22:00 Bupivacaine HCl/ Epinephrine Bitart (Sensorcain-Epi 0.5% Kit) 30 ml STK-MED ONCE INJ Last administered on 05/26/21at 12:26; Start 05/26/21 at 12:26; Stop 05/26/21 at 12:44; Status DC Morphine Sulfate (Morphine Sulfate) 2 mg STK-MED ONCE .ROUTE ; Start 05/26/21 at 13:12; Stop 05/26/21 at 13:12; Status DC Prochlorperazine Edisylate (Compazine) 10 mg STK-MED ONCE .ROUTE ; Start 05/26/21 at 13:12; Stop 05/26/21 at 13:13; Status DC Oxycodone/ Acetaminophen (Percocet 5/325) 1 tab PRN Q4HRS PRN PO MODERATE PAIN; Start 05/26/21 at 13:30 Oxycodone/ Acetaminophen (Percocet 5/325) 2 tab PRN Q4HRS PRN PO SEVERE PAIN Last administered on 05/26/21at 16:19; Start 05/26/21 at 13:30 Ketorolac Tromethamine (Toradol 30mg Vial) 30 mg 1X ONCE IVP Last administered on 05/26/21at 13:50; Start 05/26/21 at 14:00; Stop 05/26/21 at 14:01; Status DC Aspirin (Aspirin Chewable) 81 mg DAILY PO ; Start 05/27/21 at 09:00 Atorvastatin Calcium (Lipitor) 10 mg DAILY PO ; Start 05/27/21 at 09:00 Cetirizine HCl (ZyrTEC) 10 mg DAILY PO Last administered on 05/27/21at 08:16; Start 05/27/21 at 09:00 Ferrous Sulfate (Feosol) 325 mg DAILYWBKFT PO ; Start 05/27/21 at 08:00 Levothyroxine Sodium (Synthroid) 150 mcg DAILYAC PO Last administered on 04/29 08/17at 06:33; Start 05/27/21 at 07:30 Metoprolol Succinate (Toprol Xl) 25 mg DAILY PO Last administered on 05/27/21at 08:17; Start 05/27/21 at 09:00 Fluticasone Propionate (Flonase) 2 spray DAILY NS ; Start 05/27/21 at 09:00 Non-Formulary Medication (Fluticasone Propionate (Flovent 110MCG Hfa)) 2 puff BID IH ; Start 05/26/21 at 21:00; Status UNV Losartan Potassium (Cozaar) 50 mg DAILY PO ; Start 05/27/21 at 09:00 Budesonide (Pulmicort) 0.5 mg RTBID NEB ; Start 05/26/21 at 20:00 Active Scripts Active Tramadol Hcl 50 Mg Tablet 50 Mg PO PRN Q6HRS PRN 6 Days Reported Zyrtec (Cetirizine Hcl) 10 Mg Tablet 10 Mg PO Flonase Allergy Relief (Fluticasone Propionate) 9.9 Ml [place].susp 2 Sprays NS DAILY Advair 100-50 Diskus (Fluticasone/Salmeterol) 1 Each Disk.w.dev 1 Inh IH BID Metoprolol Succinate ( Xl ) (Metoprolol Succinate) 25 Mg Tab.er.24h 25 Mg PO DAILY Micardis (Telmisartan) 40 Mg Tablet 1 Tab PO DAILY Proair Hfa Inhaler (Albuterol Sulfate) 8.5 Gm Hfa.aer.ad 1 Puff INH PRN Q6HRS PRN Flovent 110MCG Hfa (Fluticasone Propionate) 12 Gm Aer.w.adap 2 Puff IH BID Iron Supplement (Ferrous Sulfate) 325 Mg Tablet 65 Mg PO DAILY last dose this am Vitamin D3 (Cholecalciferol (Vitamin D3)) 5,000 Unit Tablet 3,000 Unit PO DAILY last dose this am next dose tomorrow Aspirin 81 Mg Tab.chew 81 Mg PO DAILY last dose this am net dose tomorrow Lipitor (Atorvastatin Calcium) 10 Mg Tablet 10 Mg PO DAILY last dose last night next dose tonight Synthroid (Levothyroxine Sodium) 150 Mcg Tablet 150 Mcg PO DAILYAC last dose this am next dose tomorrow Vitals/I & O Vital Sign - Last 24 Hours 05/26/21 05/26/21 05/26/21 05/26/21 13:06 13:06 13:16 13:21 Pulse 90 90 Resp 20 20 20 B/P (MAP) 121/71 132/61 Pulse Ox 100 100 O2 Delivery Mask Simple Mask Simple Mask O2 Flow Rate 10 10 10.0 10 05/26/21 05/26/21 05/26/21 05/26/21 13:26 13:36 13:51 14:00 Temp 98.0 98.0 Pulse 92 78 Resp 20 20 20 B/P (MAP) 158/74 155/76 Pulse Ox 92 98 90 O2 Delivery Simple Mask Room Air Room Air Room Air O2 Flow Rate 10.0 05/26/21 05/26/21 05/26/21 05/26/21 14:00 14:00 14:15 14:30 Temp 98.4 98.4 Pulse 92 79 90 Resp 20 18 20 B/P (MAP) 122/67 (85) 118/62 (80) 129/68 (88) Pulse Ox 92 90 89 O2 Delivery Room Air Room Air Room Air Room Air 05/26/21 05/26/21 05/26/21 05/26/21 14:45 15:15 15:45 16:19 Pulse 72 79 74 Resp 22 B/P (MAP) 121/58 (79) 137/72 (93) 134/73 (93) Pulse Ox 94 94 94 92 O2 Delivery Room Air Room Air 05/26/21 05/26/21 05/26/21 05/26/21 17:00 19:00 20:00 23:00 Temp 97.7 97.9 97.7 97.9 Pulse 58 60 Resp 19 18 B/P (MAP) 109/44 (65) 107/48 (67) Pulse Ox 94 95 96 O2 Delivery Room Air Room Air Room Air Room Air 05/27/21 05/27/21 05/27/21 05/27/21 03:00 07:00 08:00 08:17 Temp 97.8 98.3 97.8 98.3 Pulse 68 76 76 Resp 18 16 B/P (MAP) 105/52 (69) 102/47 (65) 102/47 Pulse Ox 97 97 O2 Delivery Room Air Room Air 05/27/21 11:00 Temp 98.0 98.0 Pulse 86 Resp 18 B/P (MAP) 103/47 (65) Pulse Ox 96 Intake and Output 05/26/21 05/26/21 05/27/21 15:00 23:00 07:00 Intake Total 1300 ml 1232 ml Output Total 185 ml 550 ml 700 ml Balance 1115 ml 682 ml -700 ml Justifications for Admission General Conditions Other justification for admit: Acute appendicitis Other Justification WISAM PEÑALOZA MD May 27, 2021 12:09
--- NOTE | 2021-05-27 14:56 | NUR ---
Patient discharged home with self care. Patient verbalized understanding of discharge instructions.
--- NOTE | 2021-06-07 16:07 | PATHOLOGY ---
[facility] Accession Number: [id number] . 01 Material submitted: . appendix - APPENDIX . 01 Clinical history: . LAPAROSCOPIC APPENDECTOMY . 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 See comment. (JPM:[facility]; 06/07/2021) [facility] 06/07/2021 1049 Local . 02 Comment: Sections of the appendix reveal diverticular outpouchings of the distal appendix which extend through the appendiceal wall into the subserosa and mesoappendix. The outpouchings are distended with mucin containing histiocytes and inflammatory cells. There are no obvious tumor cells floating within the mucin. The outpouchings are largely devoid of any epithelial lining and show only small foci of residual appendiceal mucosal epithelial lining showing mild nuclear atypia. The outpouchings are focally lined by a stratified layer of apparent histiocytes, and the wall of the outpouchings are of variable thickness and shows chronic and focal acute inflammation. One of the outpouchings extending into the mesoappendix shows acute and chronic inflammation with mesoappendiceal abscess. Pools of mucin containing tumor cells dissecting through the appendiceal wall separate from the diverticular outpouchings is not identified. There is serosal acute inflammatory exudate of the distal appendix. Several immunoperoxidase stains are obtained and yield the following results: AE1/AE3 (A1): Focal residual appendiceal epithelium lining mucin distended diverticular outpouchings positive CEA-M (A1): Focal residual appendiceal epithelium lining mucin distended diverticular outpouchings positive and nonspecific staining of histiocytes lining diverticular outpouchings noted CDX2 (A1): Focal residual appendiceal epithelium lining mucin distended diverticular outpouchings positive CD68 (A1): Histiocytes lining mucin distended diverticular outpouchings positive . AE1/AE3 (A2): Focal residual appendiceal epithelium lining mucin distended diverticular outpouchings positive CEA-M (A2): Focal residual appendiceal epithelium lining mucin distended diverticular outpouchings positive and focal nonspecific staining of histiocytes lining diverticular outpouchings noted CDX2 (A2): Focal residual appendiceal epithelium lining mucin distended diverticular outpouchings positive CD68 (A2): Histiocytes lining diverticular outpouchings positive . AE1/AE3 (A5 and A6): Appendiceal epithelium adjacent to mesoappendiceal abscess positive CEA-M (A5 and A6): Appendiceal epithelium adjacent to mesoappendiceal abscess positive CDX2 (A5 and A6): Appendical epithelium adjacent to mesoappendiceal abscess positive CD68 (A5 and A6): Clusters of histiocytes within mesoappendiceal abscess positive . The differential diagnosis includes appendiceal diverticula with acute and chronic appendicitis and mesoappendiceal abscess, and a low-grade appendiceal mucinous neoplasm. The case has also been examined by Dr. Reyna and Dr. Law. The case is being forwarded to Dr. Melendez at [facility] for consultation, the results of which will be reported separately. . (JPM:pit/pat; 06/07/2021) . Special stains performed: Immunoperoxidase for AE1/AE3, CEA-M, CDX2, CD68 on A1 and AE1/AE3, CEA-M, CDX2, CD68 on A2 and A6. . 02 Electronically signed: . Jimmy Ren MD, Pathologist NPI- [id number] . 01 Gross description: . Fixative: Formalin Labeled: Appendix Perforation: None Appendix size: 7.5 cm in length by 1.5 cm in diameter Mesoappendix: Up to 2.7 cm of attached, saab, dense rubbery fat with overlying fibrinous exudate Proximal margin: Inked black Serosa: Pale paulino-meneses to brown and smooth with overlying fibrinous exudate Mucosa: Meneses, dusky and edematous Luminal diameter: ranges from less than 0.1 cm to 0.7 cm Wall thickness: Ranges from 0.2 cm to 0.6 cm Lesions/abnormalities: The distal tip displays a pale yellow to paulino gelatinous and mucinous containing proposed diverticulum (1.1 x 0.8 x 0.5 cm) that comes to within 5.4 cm of the proximal margin and 4.5 cm from the mesenteric margin (inked red). The serosa overlying the proposed diverticulum is inked blue. The fat proximally adjacent to the proposed diverticulum is necrotic, hemorrhagic and focally cystic (2.4 x 1.2 x 1.2 cm). The hemorrhagic fat comes to within 2.0 cm from the mesenteric margin and 3.5 cm from the proximal margin. . A1-A2: Proximal margin, submitted en face, entirely submitted and distal tip, serially sectioned and submitted on edge, entirely submitted A3: Mesenteric margin, submitted en face, entirely submitted A4-A9: Cross sections of appendix submitted sequentially from distal to proximal to show diverticulum represented in A4, a contiguous bisected section submitted in A6-A7, hemorrhagic fat represented in A5 and A8 and unremarkable cross sections submitted in A9 ([place]; 05/28/2021) DKA/DKA 06/07/2021 1035 Local . 02 Pathologist provided ICD-10: K35.33, K36 . 02 CPT . 121708, [id number], [id number] Specimen Comment: A courtesy copy of this report has been sent to [phone], [phone] Specimen Comment: [id number], Specimen Comment: Report sent to , DR LAWSON AND DR CHINCHILLA Specimen Comment: A duplicate report has been generated due to demographic updates. Performed at: 01 [facility] [address], [place] [id number] MD Dank Butler MD Phone: [phone] Performed at: 02 [facility] [address] [place], [place] [id number] MD Jimmy Ren MD Phone: [phone]
== END 2021-05-27 13:55 | disposition home or self-care (01) | DRG 342 ==
LOC: 4 NORTH 11:51
PROVIDERS: ADMIT Family Medicine; ATTEND Family Medicine
PROC: 0DTJ4ZZ Resection of Appendix, Percutaneous Endoscopic Approach (ICD-10-PCS; principal; 2021-05-26 10:45)
DX: K35.80 Unspecified acute appendicitis (principal); Z68.43 Body mass index [BMI] 50.0-59.9, adult; E03.9 Hypothyroidism, unspecified; I10 Essential (primary) hypertension; J45.40 Moderate persistent asthma, uncomplicated; J84.10 Pulmonary fibrosis, unspecified; K21.9 Gastro-esophageal reflux disease without esophagitis; Z83.3 Family history of diabetes mellitus; Z85.850 Personal history of malignant neoplasm of thyroid; Z88.8 Allergy status to other drugs, medicaments and biological substances; E66.01 Morbid (severe) obesity due to excess calories
CPT/HCPCS: 36415; 80048; 85025; 88304; 88341; 88342; A4222; A4314; A4364; A4452; A4930; J0330; J0780; J1100; J1644; J1885; J2270; J2370; J2405; J2704; J2710; J3010; J3490; J7120; G0378

== ENCOUNTER → 2021-11-14 | Outpatient (CLI) | payer OTHER ==
[~2021-11-14] MED LIST changes: +TRAM50TA PO
--- NOTE | 2021-11-14 16:52 | RAD ---
EXAM: US VENOUS REFLUX 11/14/2021 12:52 PM CLINICAL INDICATION: Acute stasis dermatitis COMPARISON: None TECHNIQUE: Grayscale, color and spectral Doppler ultrasound of the lower extremity veins to evaluate for venous insufficiency. FINDINGS: Right greater saphenous vein reflux and diameter: Femoral junction: 2.1 seconds, 5 mm Proximal: 2.2 seconds, 3.2 mm Middle: 1.9 seconds, 3.9 mm Distal: 1.5 seconds 3.7 mm Left greater saphenous vein reflux and diameter: Femoral junction: 1.3 seconds, 6.9 mm Proximal: 1.6 seconds, 6.6 mm Minimal: 1.2 seconds, 5.4 mm Distal 1 1.7 seconds, 3.7 mm. Right small saphenous vein reflux and diameter: Popliteal junction: 1.2 seconds, 6.6 mm Proximal: 2.6 seconds, 3.9 mm Middle: 3 seconds, 3.4 mm Distal: 1.3 seconds, 3.4 mm Left small saphenous vein reflux diameter: Popliteal Junction: 0 seconds, 4.5 mm Proximal: 0 seconds, 3 mm middle: 0 seconds, 2.8 mm After the distal thigh, the greater saphenous vein gets very tortuous and has many branches bilateral ly. IMPRESSION: 1. Bilateral greater saphenous vein reflux from the groin to the knee. 2. Reflux in the right small saphenous vein from the knee to the ankle. Electronically signed by: Colette Christie MD (11/14/2021 4:50 PM) [id number]
--- NOTE | 2021-11-14 17:12 | CARD ---
MR#: [id number] Date of Study: 11/14/2021 Ordering Physician: RADHA MAHONEY, Referring Physician: RADHA MAHONEY, Tech: Adelaide Louie [facility], RVT APPROVED REPORT EXAM: Two-dimensional and M-mode echocardiogram with Doppler and color Doppler. Other Information Quality : AverageHR: 84bpm Rhythm : NSR INDICATION RVE 2D DIMENSIONS RVDd2.8 (2.9-3.5cm)Left Atrium(2D)3.2 (1.6-4.0cm) IVSd1.8 (0.7-1.1cm)Aortic Root(2D)2.4 (2.0-3.7cm) LVDd4.0 (3.9-5.9cm)LVOT Diameter2.3 (1.8-2.4cm) PWd1.2 (0.7-1.1cm) Aortic Valve AoV Peak Jeremy.154.4cm/sAoV VTI30.6cm AO Peak GR.9.5mmHgAO Mean GR.5mmHg Mitral Valve MV E Allbowxb89.2cm/sMV DECEL GHTG161as MV A Jywkgiyt35.1cm/sMV VKN64of E/A Ratio1.0MVA (PHT)3.41cm2 Pulmonary Valve PV Peak Nqdsohsv78.2cm/sPV Peak Grad.3mmHg Tricuspid Valve TR P. Mwjkwxdm904xr/sRAP TSVYOCWV4ptCz TR Peak Gr.27nyXhQGZZ92nrBa Pulmonary Vein S1 Eobrhzqn58.3cm/sD2 Atjfwmcc07.3cm/s PVa [id number] LEFT VENTRICLE The left ventricle is normal size. There is normal left ventricular wall thickness. Left ventricular systolic function is normal. The left ventricular ejection fraction is 55 to 60%. No regional wall mo tion abnormalities noted. Tissue Doppler imaging reveals abnormal left ventricular diastolic dysfunct ion. No left ventricle thrombus noted on this study. There is no ventricular septal defect visualized . There is no left ventricular aneurysm. There is no mass noted in the left ventricle. RIGHT VENTRICLE The right ventricle is upper normal in chamber size. There is normal right ventricular wall thickness . The right ventricular systolic function is normal. ATRIA The left atrium size is normal. The right atrium size is normal. The interatrial septum is intact wit h no evidence for an atrial septal defect or patent foramen ovale as noted on 2-D or Doppler imaging. AORTIC VALVE The aortic valve is normal in structure and function. No aortic regurgitation is present. There is no aortic valvular stenosis. There is no aortic valvular vegetation. MITRAL VALVE The mitral valve is normal in structure and function. There is no evidence of mitral valve prolapse. There is no mitral valve stenosis. There is no mitral valve regurgitation noted. TRICUSPID VALVE The tricuspid valve is normal in structure and function. Doppler and Color Flow revealed trace to mil d tricuspid regurgitation. There is no tricuspid valve prolapse or vegetation. There is no tricuspid valve stenosis. PULMONIC VALVE The pulmonary valve is normal in structure and function. There is no pulmonic valvular regurgitation. There is no pulmonic valvular stenosis. GREAT VESSELS The aortic root is normal in size. The ascending aorta is normal in size. The pulmonary artery is nor mal. The IVC is normal in size and collapses >50% with inspiration. PERICARDIAL EFFUSION There is no pleural effusion. The pericardium appears normal. Critical Notification Critical Value: No <Conclusion> The left ventricle is normal size. Left ventricular systolic function is normal. The left ventricular ejection fraction is 55 to 60%. No regional wall motion abnormalities noted. No aortic regurgitation is present. There is no aortic valvular stenosis. There is no mitral valve regurgitation noted. Doppler and Color Flow revealed trace to mild tricuspid regurgitation. Signed by : Gabino Berger MD Electronically Approved : 11/14/2021 17:11:42
== END ==
LOC: US 12:34
PROVIDERS: ATTEND Internal Medicine Cardiovascular Disease
DX: I07.1 Rheumatic tricuspid insufficiency (principal); I87.2 Venous insufficiency (chronic) (peripheral)
CPT/HCPCS: 93306; 93970; C8929